=== PATIENT | female | born 1940 | race Caucasian/White ===

== ENCOUNTER 2022-06-05 13:38 | Emergency (ER) | payer BC ==
[~2022-06-05] VITALS: Ht 152.4 cm; Wt 59.0 kg
--- NOTE | 2022-06-05 13:55 | NUR ---
[facility] [id number] FOR TRIP AND FALL ON BUS STOP. PT APPEARS TO HAVE SUSTAINED LACERATION ON FOREHEAD. PT DENIES LOC. PT IS [id number]. TRANSFERRED TO BED AND CONNECTED TO MONITOR. BREATHING EVEN AND UNLABORED. AWAITING MD ORDERS.
[2022-06-05] MEDS ORDERED: TDAP [DIPH/PERTUSSIS/TET] 0.5 ML VIAL IM ONE ×2 (14:44→15:00)
--- NOTE | 2022-06-05 15:09 | NUR ---
TAKEN TO CT VIA [facility]
--- NOTE | 2022-06-05 15:12 | NUR ---
[facility]
--- NOTE | 2022-06-05 16:44 | NUR ---
PT TAKEN TO CT VIA [facility]
--- NOTE | 2022-06-05 16:54 | NUR ---
Dharmesh medel in [facility] - 06/05/22 at 1655 by BRAD PT RETURNED TO CT VIA [facility]
--- NOTE | 2022-06-05 16:55 | NUR ---
PT RETURNED FROM CT VIA [facility]
--- NOTE | 2022-06-05 17:51 | NUR ---
Patient discharged to home in stable condition. Written and verbal after care instructions given. Patient verbalizes understanding of instruction.
[2022-06-05 17:53] VITALS: BP 133/68
== END 2022-06-05 17:54 | disposition home or self-care (01) ==
LOC: ER 13:42
DX: S01.81XA Laceration without foreign body of other part of head, initial encounter (principal); I10 Essential (primary) hypertension; E78.00 Pure hypercholesterolemia, unspecified; W18.30XA Fall on same level, unspecified, initial encounter; Y93.89 Activity, other specified; Y92.89 Other specified places as the place of occurrence of the external cause; Y99.8 Other external cause status
CPT/HCPCS: 70486-TC; 90715